=== PATIENT | male | born 1970 | race Caucasian/White ===

== ENCOUNTER 2016-09-06 12:13 | Emergency (ER) | payer OTHER ==
[~2016-09-06] VITALS: Ht 190.5 cm; Wt 128.4 kg
[2016-09-06 13:27] VITALS: BP 176/89
== END 2016-09-06 13:59 | disposition home or self-care (01) ==
LOC: ER 12:13
DX: S61.211A Laceration without foreign body of left index finger without damage to nail, initial encounter (principal); I10 Essential (primary) hypertension; I25.2 Old myocardial infarction; E11.9 Type 2 diabetes mellitus without complications; F17.210 Nicotine dependence, cigarettes, uncomplicated; F10.99 Alcohol use, unspecified with unspecified alcohol-induced disorder; W26.0XXA Contact with knife, initial encounter; Z95.5 Presence of coronary angioplasty implant and graft; Y93.89 Activity, other specified; Y92.89 Other specified places as the place of occurrence of the external cause; Y99.0 Civilian activity done for income or pay